=== PATIENT | male | born 1965 | race Caucasian/White ===

== ENCOUNTER → 2017-07-06 | Outpatient (CLI) | payer MEDICAID ==
[~2017-07-06] MED LIST: ALLO300T PO; CANA300T PEG; MULT-658 PO; OMEP-110 PO; SIMV20TA3 PO; [UNRECOGNIZED DRUG - CODE] PO
== END | disposition home or self-care (01) ==
LOC: CFH 09:32
PROVIDERS: ATTEND Nurse Practitioner Family
DX: M25.572 Pain in left ankle and joints of left foot (principal)